=== PATIENT | male | born 1970 | race Caucasian/White ===

== ENCOUNTER 2017-05-02 05:47 | Day surgery (SDC) | payer BC ==
[2017-05-02] MEDS ORDERED: Celecoxib 200 MG Cap PO ONE (06:16)
[2017-05-02] MEDS ORDERED: Acetaminophen 500 MG Tab PO ONE (06:26)
[2017-05-02] MEDS ORDERED: Bupivacaine 0.5%/EPINEPHrine 1:200,000 50 ML MDV ONE (06:42)
[2017-05-02] MEDS ORDERED: Meropenem 500 MG SDV ONE (06:53)
[2017-05-02] MEDS ORDERED: Dexamethasone 4 MG/ML SDV ONE (07:11)
[2017-05-02] MEDS ORDERED: Glycopyrrolate 0.2 MG/ML 5 ML MDV ONE (07:11)
[2017-05-02] MEDS ORDERED: Neostigmine Methylsulfate 1 MG/ML 5 ML Syringe ONE (07:11)
[2017-05-02] MEDS ORDERED: Propofol 200 MG/20 ML SDV ONE (07:11)
[2017-05-02] MEDS ORDERED: Succinylcholine 200 MG/10 ML MDV ONE (07:11)
[2017-05-02] MEDS ORDERED: Rocuronium 50 MG/5 ML Vial ONE (07:11)
[2017-05-02] MEDS ORDERED: Ondansetron 4 MG/2 ML SDV ONE (07:11)
[2017-05-02] MEDS ORDERED: ceFAZolin 2 GM in Premix Bag 1 BAG IV ONE (07:30)
[2017-05-02] MEDS ORDERED: Dextrose 5%-Lactated Ringers 1,000 ML IV SCH (07:30)
[2017-05-02] MEDS ORDERED: ceFAZolin 2 GM in Sodium Chloride 0.9% 50 ML IV ONE (07:30)
[2017-05-02] MEDS ORDERED: Ketorolac 60 MG/2 ML SDV ONE (08:20)
--- NOTE | 2017-05-02 19:25 | OR ---
DATE OF PROCEDURE: 05/02/2017 PREOPERATIVE DIAGNOSIS: Incarcerated umbilical hernia. POSTOPERATIVE DIAGNOSIS: Incarcerated umbilical hernia. OPERATIVE PROCEDURES: Diagnostic laparoscopy with; 1. Repair of incarcerated umbilical hernia with mesh (39034). 2. Placement of Interceed mesh to limit postoperative adhesion formation between small bowel and other viscera and abdominal wall (58342). ANESTHESIA: General. CONTRACT ANALYST: Alia Taylor PA-C. INDICATION FOR PROCEDURE: This is a 46-year-old male presenting with progressively symptomatic umbilical hernia that has not been completely reducible at times. Plan is to proceed with the a laparoscopic repair with mesh. Potential risks including bleeding, infection, possible recurrence of the hernia, problems with mesh becoming infected or injury to the underlying viscera were all reviewed, and the patient wishes to proceed. DETAILS OF PROCEDURE: The patient was taken to the operating room and placed in a supine position. After general endotracheal anesthesia was induced, a Quinones catheter was inserted, and the abdomen was prepped and draped. In the left lateral abdomen, a transverse incision was made, and the peritoneal cavity entered under direct vision with an Optiview trocar and inflated to 15 mmHg with CO2. Laparoscope was then reinserted and no underlying trocar insertion site injuries were seen. 5 mm trocars were then placed in the left upper quadrant as well as left lower quadrant, and the abdomen was examined. As expected, the patient had an incarcerated umbilical hernia. No other specific pathology was seen. The hernia was then manually pushed on externally and along with the scalpel dissection allowed reduction of the hernia and excision of the hernia contents, which were sent for pathologic review. The defect measured about 1 cm. At this point, a decision was made to proceed with a repair using a 11.[address] hernia patch with a single stitch on the polypropylene side of the mesh in the center was initially placed and then the mesh was soaked in antibiotic- containing saline solution and positioned into the abdomen. A small stab wound just inferior to the umbilicus brought through the center of the hernia was made, through which the suture retrieval device was brought through and the stitch pulled up, thus centering the mesh over the hernia site. Using 2 rows of absorbable fixation screws to fix the mesh. The mesh appeared to be satisfactorily adherent to this point. The suture was then cut at the skin level. This type of polypropylene mesh was quite prone to form dense adhesions, making subsequent surgical procedures more difficult. Given this, an Interceed mesh was then placed underneath the polypropylene mesh to additionally protect it from adhesion formation. Once this was in position, the trocars were removed, and the peritoneal cavity was deflated. The fascia at the 12 mm site was closed with 0 Vicryl stitch, and the skin with a 4-0 Vicryl skin stitch. Dressing was applied. The patient was taken to the recovery room in a satisfactory condition. Physician technology assistant, Alia Taylor, played an essential role in assisting in this case, helping to position the patient, suturing and cutting sutures when indicated. Her presence improved patient safety and decreased the operative time. Suraj Menezes MD /[id number]
== END 2017-05-02 11:00 | disposition home or self-care (01) ==
LOC: JP.SDS 05:47
PROVIDERS: ATTEND Surgery
DX: K42.0 Umbilical hernia with obstruction, without gangrene (principal); F32.9 Major depressive disorder, single episode, unspecified; Z88.1 Allergy status to other antibiotic agents; F17.210 Nicotine dependence, cigarettes, uncomplicated
CPT/HCPCS: 36415; 44700; 49587; 80048; 85027; A9270; C1781; J0330; J0690; J1100; J1885; J2185; J2405; J2704; J2710; J3010; J7042; J7050; 88302

== ENCOUNTER 2018-03-30 10:14 | Emergency (ER) | payer BC, OTHER ==
--- NOTE | 2018-03-30 11:06 | EDM.PDOC ---
ED HPI GENERAL MEDICAL PROBLEM - General Chief Complaint: Genitourinary Problem Stated Complaint: HERNIA? Time Seen by Provider: 03/30/18 10:45 Source of Information: Reports: Patient, Family History Limitations: Reports: No Limitations - History of Present Illness INITIAL COMMENTS - FREE TEXT/NARRATIVE: 47-year-old male with a slowly worsening masslike affect under the base of the penis in the retroperitoneal area over the past several weeks. No fevers or chills. No trauma. He has a history of a vasectomy with reversal. No dysuria, nausea vomiting, diarrhea and bowels are normal. Onset: Gradual Duration: Week(s): (Worsening symptoms for several weeks) Severity: Moderate Associated Symptoms: Reports: No Other Symptoms testicle Pain Score (Numeric/FACES): 5 - Related Data Allergies Allergy/AdvReac Type Severity Reaction Status Date / Time amoxicillin [Amoxicillin] Allergy Rash Verified 03/30/18 10:35 Home Meds: Home Meds NK [No Known Home Meds] 01/17/14 [History] Past Medical History Respiratory History: Reports: None Musculoskeletal History: Reports: Arthritis - Past Surgical History Head Surgeries/Procedures: Reports: None HEENT Surgical History: Reports: Adenoidectomy, Myringotomy w Tube(s), Tonsillectomy GI Surgical History: Reports: Appendectomy, Hernia, Abdominal Musculoskeletal Surgical History: Reports: Arthroscopic Knee, Other (See Below) Other Musculoskeletal Surgeries/Procedures:: wrist Social & Family History - Tobacco Use Smoking Status *Q: Current Every Day Smoker Years of Tobacco use: 25 Packs/Tins Daily: 1 - Caffeine Use Caffeine Use: Reports: Coffee, Tea - Recreational Drug Use Recreational Drug Use: No ED ROS GENERAL - Review of Systems Review Of Systems: See Below Constitutional: Denies: Fever, Chills Respiratory: Denies: Shortness of Breath Cardiovascular: Denies: Chest Pain GI/Abdominal: Denies: Abdominal Pain, Nausea, Vomiting Musculoskeletal: Reports: Other (See history of present illness) Neurological: Reports: No Symptoms ED EXAM, RENAL/ - Physical Exam Exam: See Below Exam Limited By: No Limitations General Appearance: Alert, No Apparent Distress, Other (Looks uncomfortable, in no distress) Respiratory/Chest: No Respiratory Distress Cardiovascular: Regular Rate, Rhythm (Male) Exam: Other (Patient has a swollen midline longitudinal masslike effect extending from the base of the penis into the perineum. It is not warm or erythematous.). No: Scrotal Swelling, Suprapubic Fullness, Testicular Mass Course - Vital Signs Last Recorded V/S: Last Vital Signs Temp 207.9 F H 03/30/18 10:33 Pulse Resp BP Pulse Ox - Orders/Labs/Meds Orders: Active Orders 24 hr Category Date Time Status CULTURE WOUND + SMEAR [RM] Stat Lab 03/30/18 12:42 Results Meds: Medications Discontinued Medications Generic Name Dose Route Start Last Admin Trade Name Digna PRN Reason Stop Dose Admin Lidocaine/Epinephrine 30 ml 03/30/18 11:59 03/30/18 12:40 Xylocaine 1% With Epinephrine 1:100,000 SUBCUT 03/30/18 12:00 30 ml ONETIME ONE Administration - Re-Assessments/Exams Free Text/Narrative Re-Assessment/Exam: 03/30/18 11:06 An ultrasound of the area to rule out fluid collection or abscess was obtained. 03/30/18 12:10 Ultrasound confirmed a perineal abscess. Dr. Sher was consulted and kindly assessed the patient and is planning on an I&D procedure 03/30/18 12:42 Patient was discharge with packing placed by surgery, he'll be placed on Bactrim DS twice a day and given 10 Vicodin to take for extra pain control. Recheck with Dr. Rosas tomorrow. Departure - Departure Time of Disposition: 13:29 Disposition: Home, Self-Care 01 Condition: Good Clinical Impression: Abscess of superficial perineal space - Discharge Information Instructions: Skin Abscess, [id number] Referrals: PCP,None [Primary Care Provider] - Forms: ED Department Discharge Care Plan Goals: Rest, warm compresses to the area will be beneficial once the antibiotic is started. Ibuprofen for pain and add stronger pain medication if needed as directed. Recheck with Dr. Rosas tomorrow for surgical recheck. APPT AT [facility] 03/31/18 AT 1:40PM WITH DR ROSAS
--- NOTE | 2018-03-30 11:53 | US ---
Pelvis Non OB Ltd perineum CLINICAL HISTORY: Painful mass FINDINGS: Real-time images were obtained over the perineal region. There is ovoid the shaped soft tis cori swelling measuring 2 x 5 cm midline at the perineum from the skull base to the anal verge. There is moderately increased flow consistent with inflammation. There is a curvilinear extension of this e xtending deeper into the peritoneum. This could be a sinus tract There is central complex fluid colle ction measuring 1.1 x 0.8 cm. There is no internal flow. This is consistent with the perianal abscess . IMPRESSION: Soft tissue inflammatory mass with central fluid the is felt to represent a perianal absc ess Dr. Pina was notified by phone at the time of this dictation. 11:50 AM
[2018-03-30] MEDS ORDERED: Lidocaine 1% with EPINEPHrine 1:100,000 50 ML MDV SUBCUT ONE (11:59)
--- NOTE | 2018-03-31 07:25 | OR ---
DATE OF PROCEDURE: 03/30/2018 PREPROCEDURE DIAGNOSIS: Perineal abscess. POSTPROCEDURE DIAGNOSIS: Perineal abscess. PROCEDURE PERFORMED: Incision and drainage of perineal abscess. ANESTHESIA: Lidocaine 1% with epinephrine local. INDICATION: This 47-year-old white male has noted a painful mass for the past few days in his perineal area. It is becoming quite tender. He has an appointment two days from now to be seen in the clinic, but the pain was too bad and he could not wait. He came to the emergency room then, where he was found to have a tender mass in his perineal area. No fever or chills. He is afebrile. Ultrasound shows he has an abscess there, which measured about 1 cm in diameter. A request was made for incision and drainage of this. I counseled him for the procedure, and he gave his informed consent to proceed. PROCEDURE DETAILS: The patient's perineal area, genital area, and upper thighs were prepped and draped in usual sterile fashion. Lidocaine 1% with epinephrine was infiltrated over the fluctuant area associated with the abscess. An elliptical incision parallel to the median raphae was made on the left side of the medium raphae, and the underlying abscess cavity was entered, releasing purulent material. The material was sent for Gram stain and culture. We opened the incision throughout its entire extent. The incision was irrigated and looked well. It was then packed with 1/4 inch iodoform gauze, and a sterile dressing was applied. He tolerated the procedure well. We will let him see Dr. Rosas tomorrow to remove the packing, and begin local wound care. Dr. Pina gave him Bactrim DS one p.o. b.i.d. for 10 days and 10 [place] for pain control. Aureliano Sher MD /[id number]
== END 2018-03-30 13:25 | disposition home or self-care (01) ==
LOC: JP.ED 10:14
DX: L02.215 Cutaneous abscess of perineum (principal); F17.210 Nicotine dependence, cigarettes, uncomplicated; Z88.1 Allergy status to other antibiotic agents
CPT/HCPCS: 10060; 56405; 76857; 76857-26; 87070; 87077; 87205; 99284-25

== ENCOUNTER 2021-06-10 07:29 | Emergency (ER) | payer OTHER ==
[2021-06-10] MEDS ORDERED: Ketorolac 30 MG/ML SDV IM ONE (07:34)
--- NOTE | 2021-06-10 08:12 | EDM.PDOC ---
ED HPI GENERAL MEDICAL PROBLEM - General Chief Complaint: Flank Pain Stated Complaint: LOWER MIDDLE BACK PAIN Time Seen by Provider: 06/10/21 07:50 Source of Information: Reports: Patient, Old Records, RN History Limitations: Reports: No Limitations - History of Present Illness INITIAL COMMENTS - FREE TEXT/NARRATIVE: 50 yo male presents with intermittent L flank pain since this past Friday. He has no hx of kidney stones. He has not had a fever or gross hematuria. Once when his pain was at its worst he had nausea with "dry heaves". He does say his urine is dark. He is here accompanied by his . Onset: Sudden Onset Date: 06/08/21 Duration: Day(s):, Intermittent, Waxing/Waning Location: Reports: Back (L flank) Quality: Reports: Pressure Severity: Mild (almost gone now, severe at times) Improves with: Reports: Other (unsure) Worsens with: Reports: Other (unsure) Context: Reports: Other (See HPI) Associated Symptoms: Reports: Diaphoresis, Nausea/Vomiting. Denies: Fever/Chills, Rash Treatments INTEGRITY CONSULTANT: Reports: Other (see below) (nothing in the last 6-8 hrs or more) Left Flank Pain Score (Numeric/FACES): 4 - Related Data Allergies Allergy/AdvReac Type Severity Reaction Status Date / Time amoxicillin [Amoxicillin] Allergy Rash Verified 06/10/21 07:42 Home Meds: Home Meds Cholecalciferol (Vitamin D3) [Vitamin D3] 2,000 unit PO DAILY 06/10/21 [History] Diclofenac Potassium [Camb[place]] 50 mg PO ASDIRECTED PRN 06/10/21 [History] Testosterone Cypionate [Depo-Testosterone] 2,000 mg IM ONETIME 06/10/21 [History] lisinopriL [Lisinopril] 20 mg PO DAILY 06/10/21 [History] metFORMIN [Glucophage] 500 mg PO BIDMEALS 06/10/21 [History] Past Medical History Cardiovascular History: Reports: Hypertension Respiratory History: Reports: None Musculoskeletal History: Reports: Arthritis - Infectious Disease History Infectious Disease History: Reports: Chicken Pox - Past Surgical History Head Surgeries/Procedures: Reports: None HEENT Surgical History: Reports: Adenoidectomy, Myringotomy w Tube(s), To nsillectomy GI Surgical History: Reports: Appendectomy, Hernia, Abdominal Musculoskeletal Surgical History: Reports: Arthroscopic Knee, Other (See Below) Other Musculoskeletal Surgeries/Procedures:: wrist Social & Family History - Caffeine Use Caffeine Use: Reports: Coffee - Recreational Drug Use Recreational Drug Use: No ED ROS GENERAL - Review of Systems Review Of Systems: See Below Constitutional: Reports: Diaphoresis (once). Denies: Fever, Chills HEENT: Reports: No Symptoms Respiratory: Reports: No Symptoms Cardiovascular: Reports: No Symptoms GI/Abdominal: Reports: Nausea, Vomiting (x 1) : Reports: Flank Pain (left). Denies: Hematuria Musculoskeletal: Reports: No Symptoms Skin: Reports: Diaphoresis (once when pain was at its worst) ED EXAM, RENAL/ - Physical Exam Exam: See Below Exam Limited By: No Limitations General Appearance: Alert, WD/WN, No Apparent Distress Eye Exam: Bilateral Eye: Normal Inspection Ears: Normal External Exam, Normal Canal, Hearing Grossly Normal Nose: Normal Inspection, No Blood Throat/Mouth: Normal Inspection, Normal Lips, Normal Voice, No Airway Compromise Head: Atraumatic, Normocephalic Neck: Normal Inspection Respiratory/Chest: No Respiratory Distress, Lungs Clear, Normal Breath Sounds, No Accessory Muscle Use Cardiovascular: Regular Rate, Rhythm, No Edema GI/Abdominal: Soft, Non-Tender Back Exam: No: CVA Tenderness (R), CVA Tenderness (L) Extremities: Normal Inspection, Normal Range of Motion, Non-Tender, No Pedal Edema Neurological: Alert, Oriented, CN II-XII Intact, Normal Cognition, No Motor/Sensory Deficits Psychiatric: Normal Affect, Normal Mood Skin Exam: Warm, Dry, Intact, Normal Color, No Rash Course - Vital Signs Last Recorded V/S: Last Vital Signs Temp 36.7 C 06/10/21 07:40 Pulse 80 06/10/21 07:40 Resp 16 06/10/21 07:40 BP 147/98 H 06/10/21 07:40 Pulse Ox 98 06/10/21 07:40 - Orders/Labs/Meds Labs: Laboratory Tests 06/10/21 Range/Units 07:51 Urine Color Yellow (YELLOW) Urine Appearance Slightly cloudy A (CLEAR) Urine pH 6.0 (5.0-8.0) Ur Specific [place] 1.020 (1.008-1.030) Urine Protein Negative (NEGATIVE) mg/dL Urine Glucose (UA) Negative (NEGATIVE) mg/dL Urine Ketones Negative (NEGATIVE) mg/dL Urine Occult Blood Small H (NEGATIVE) Urine Nitrite Negative (NEGATIVE) Urine Bilirubin Negative (NEGATIVE) Urine Urobilinogen 0.2 (0.2-1.0) EU/dL Ur Leukocyte Esterase Negative (NEGATIVE) Urine RBC 5-10 H (0-5) Urine WBC 0-5 (0-5) Ur Epithelial Cells Not seen Amorphous Sediment Not seen Urine Bacteria Not seen Urine Mucus Moderate Meds: Medications Discontinued Medications Generic Name Dose Route Start Last Admin Trade Name Digna PRN Reason Stop Dose Admin Ketorolac Tromethamine 30 mg 06/10/21 07:34 06/10/21 07:43 Ketorolac 30 Mg/Ml Sdv IM 06/10/21 07:35 30 mg ONETIME ONE Administration Departure - Departure Time of Disposition: 08:30 Disposition: Home, Self-Care 01 Condition: Fair Clinical Impression: Kidney stone on left side - Discharge Information *PRESCRIPTION DRUG MONITORING PROGRAM REVIEWED*: No *COPY OF PRESCRIPTION DRUG MONITORING REPORT IN PATIENT ARTEM: No Instructions: Renal Colic, [id number] Referrals: Diana Chanel PA-C [Primary Care Provider] - Forms: ED Department Discharge Additional Instructions: Drink enough fluids to make your urine light yellow in color. Strain your urine and save any sediment for testing by your provider. Take your diclofenac every 8 hrs until your have passed the stone. Add Percocet if more pain relief is needed. Return for fever or pain not controlled by these medications or if you have not passed the stone by the end of the week. Sepsis Event Note (ED) - Evaluation Sepsis Screening Result: No Definite Risk - Focused Exam Vital Signs: Vital Signs Temp Pulse Resp BP Pulse Ox 06/10/21 07:40 36.7 C 80 16 147/98 H 98
== END 2021-06-10 08:37 | disposition home or self-care (01) ==
LOC: JP.ED 07:29
DX: N20.0 Calculus of kidney (principal); I10 Essential (primary) hypertension; Z88.0 Allergy status to penicillin; Z79.899 Other long term (current) drug therapy; Z79.84 Long term (current) use of oral hypoglycemic drugs
CPT/HCPCS: 81001; 96372; 99284; J1885

== ENCOUNTER 2021-09-21 06:33 | Day surgery (SDC) | payer OTHER ==
[2021-09-21] MEDS ORDERED: Sodium Chloride 0.9% 1,000 ML IV SCH (07:00)
[2021-09-21] MEDS ORDERED: Midazolam 1 MG/ML 2 ML SDV ONE (07:16)
[2021-09-21] MEDS ORDERED: fentaNYL 100 MCG/2 ML SDV ONE (07:16)
[2021-09-21] MEDS ORDERED: Propofol 200 MG/20 ML SDV ONE (07:16)
== END 2021-09-21 09:15 | disposition home or self-care (01) ==
LOC: JP.SDS 06:33
PROVIDERS: ATTEND Surgery
DX: Z12.11 Encounter for screening for malignant neoplasm of colon (principal); K63.5 Polyp of colon; I10 Essential (primary) hypertension; E11.9 Type 2 diabetes mellitus without complications; K21.9 Gastro-esophageal reflux disease without esophagitis; E66.01 Morbid (severe) obesity due to excess calories; Z88.8 Allergy status to other drugs, medicaments and biological substances; Z68.31 Body mass index [BMI] 31.0-31.9, adult; Z87.891 Personal history of nicotine dependence
CPT/HCPCS: 88305; J2250; J2704; J3010; J7030